=== PATIENT | female | born 1980 | race Caucasian/White ===

== ENCOUNTER 2017-05-16 09:33 | Inpatient (IN) ==
--- NOTE | 2017-05-15 22:30 | Discharge Summary ---
<Daysi Murguia Alessandro - Last Filed: 05/15/17 22:27> Date of Encounter: 05/15/17 - Discharge Diagnosis (1) Arthritis of knee, left Priority: Primary Status: Acute (2) Status post total knee replacement, left Priority: Primary Status: Acute - Discharge Medications Home Medications: Aspirin Enteric Coated [Aspirin EC] 325 mg PO DAILY #21 tablet. 05/15/17 [Rx] OxyCODONE Immed Rel [Roxicodone 5 MG] 5 - 10 mg PO Q6HR PRN #40 tablet 05/15/17 [Rx] Citalopram Hydrobromide [Celexa] 40 mg PO DAILY 05/16/17 [History] Tramadol HCl [Ultram] 50 mg PO Q6H PRN 05/16/17 [History] Allergies/Adverse Reactions: Allergies No Known Allergies Allergy (Verified 05/16/17 10:09) Primary care physician: Dara Monaco MD - Patient Status Disposition: Home, Self-Care Condition: Good - Discharge Instructions Follow Up With: Dara Monaco MD [Primary Care Provider] - - Hospital Course Hospital course: Ms. Adair is a 36 year old female - Time Spent with Patient Total time spent providing and/or coordinating discharge services: <Jomar Cabral - Last Filed: 05/17/17 06:27> Date of Encounter: 05/17/17 Time of Encounter: 06:26 - Discharge Diagnosis (1) Arthritis of knee, left Priority: Primary Status: Chronic (2) Status post total knee replacement, left Priority: Primary Status: Acute Primary care physician: Dara Monaco MD - Patient Status Functional capacity at discharge: uses cane/walker Overall status at discharge: patient is progressing back to baseline - Hospital Course Hospital course: Ms. Adair is a 36 year old female Status post left total knee replacement. The patient had an uneventful postoperative course. They received antibiotics and physical therapy and were discharged in stable condition. There will follow-up in the office in 2 weeks. - Time Spent with Patient Total time spent providing and/or coordinating discharge services:
--- NOTE | 2017-05-15 22:34 | Physician Discharge Referral ---
Home Health/Hosp Referral Info Transfer to: Home Health Provider in Charge Post Discharge: PCP - Diagnosis (1) Arthritis of knee, left Priority: Primary Status: Acute (2) Status post total knee replacement, left Priority: Primary Status: Acute - Respiratory Orders None Smoking Cessation: Smoking cessation has been advised. For more information, call the [place] Tobacco Quit Line at 1-618-DDXK-NOW. - Diet/Nutrition Diet/Nutrition Orders: Regular - Activity Activity Orders: Up ad dalton, Ambulate - Services Needed Following services are medically necessary services: Nursing, Home Health Aide, Physical Therapy, Occupational Therapy Home Care Orders: Opsite dressing, leave intact until first post-operative visit. If dressing becomes >50% saturated, contact office, remove dressing and place appropriate dressing in its place. Do not allow for dressing to get wet. Mercer in place, plan to remove at post-operative day #14-16. Total Joint Precautions x 6 weeks Apply cold therapy wrap 3-6x/day for 20 minutes at a time. Encourage ambulation throughout the day Use Incentive spirometer 10x/hour. Elevate affected extremity above heart as tolerated. Brace: Wear knee immobilizer at night x 2 weeks - Transfer Medications Prescriptions: OxyCODONE Immed Rel [Roxicodone 5 MG] 5 - 10 mg PO Q6HR PRN #40 tablet PRN Reason: Pain Aspirin Enteric Coated [Aspirin EC] 325 mg PO DAILY #21 tablet. Home Medications: Aspirin Enteric Coated [Aspirin EC] 325 mg PO DAILY #21 tablet. 05/15/17 [Rx] OxyCODONE Immed Rel [Roxicodone 5 MG] 5 - 10 mg PO Q6HR PRN #40 tablet 05/15/17 [Rx] Certification: Further, I certify that my clinical findings support that this patient is homebound (i.e. absences from home require considerable and taxing effort and are for medical reasons or hindu services or infrequently or short duration when for other reasons) because: Homebound Reason: Post-surgery restriction and or conditions limit ability to leave home Attestation: My signature below is to certify that this patient is under my care and that I, or nurse practitioner, or a physician's branch assistant working with me, has a face-to -face encounter with this patient.
[2017-05-16] MEDS ORDERED: Albuterol 2.5 MG/3 ML NEBULIZER IH ONE ×2 (10:12→12:23)
[2017-05-16] MEDS ORDERED: CeFAZolin Pre 2,000 MG/100 ML 2,000 MG/100 ML BAG IVPB ONE (10:12)
[2017-05-16] MEDS ORDERED: Ringers Solution, Lactated 1,000 ML IVC SCH ×3 (10:15→14:28)
--- NOTE | 2017-05-16 10:20 | History & Physical Report ---
Date of Encounter: 05/16/17 Time of Encounter: 10:19 24 Hour HP Update - Instructions Instructions: If the History and Physical is less than 30 days old and was completed prior to A.M. admission and or procedure and has NOT been updated on calendar day of procedure please complete this update prior to performing procedure. - Update Patient reports changes in Medical Condition: No Changes in examination, assessment, or condition: No Changes in Medication: No Preop tests/diagnostics Reviewed: Yes Surgery Remains Indicated: Yes Consent for Planned Operative Procedure(s) Verified: Yes - Pre-Operative Checklist Preoperative Checklist Indicated: No Prophylactic Antibiotic Ordered: Yes Is VTE Prophylaxis Indicated?: Yes
[2017-05-16] MEDS ORDERED: Famotidine 20 MG/2 ML VIAL IVP ONE (10:21)
[2017-05-16] MEDS ORDERED: Gabapentin 300 MG CAPSULE PO ONE (10:21)
--- NOTE | 2017-05-16 10:45 | Anesthesia Evaluation PreOp ---
Date of Encounter: 05/16/17 Time of Encounter: 10:45 - Past History Planned Operation: Left TKA Cardiac History: Denies any Significant Hx Pulmonary History: Smoker ROAD SIGN INSTALLER History: Denies Any Significant HX Other Medical History: Other (OA) Anesthesia History: No Prior Anesthetic Complications : No Test: Negative Alcohol Use: none Drug use: none Medications and Allergies Aspirin Enteric Coated [Aspirin EC] 325 mg PO DAILY #21 tablet. 05/15/17 [Rx] OxyCODONE Immed Rel [Roxicodone 5 MG] 5 - 10 mg PO Q6HR PRN #40 tablet 05/15/17 [Rx] Citalopram Hydrobromide [Celexa] 40 mg PO DAILY 05/16/17 [History] Tramadol HCl [Ultram] 50 mg PO Q6H PRN 05/16/17 [History] Allergies No Known Allergies Allergy (Verified 05/16/17 10:09) - Meds/Allergy Pre-op Review Medications Reviewed: Yes Allergies Reviewed: Yes Beta Blockers on Current Med List: No Anesthesia Results - Labs Laboratory Tests 05/09/17 05/09/17 14:35 14:35 Hgb 13.7 Hct 40.9 Plt Count 437 H Sodium 139 Potassium 3.7 BUN 11 Creatinine 0.70 - Imaging EKG: report reviewed (SR short TX) Anesthesia Exam O2 Sat Height 1.64 m Height 1.64 m Height 1.64 m Weight 70.76 kg Weight 70.76 kg Weight 70.76 kg O2 Sat by Pulse Oximetry 100 Vital Signs Temp Pulse Resp BP Pulse Ox 98.1 F 95 18 102/70 100 05/16/17 09:57 05/16/17 09:57 05/16/17 09:57 05/16/17 09:57 05/16/17 09:57 Height: 5'5 Weight: 156 lbs NPO (# of Hours): MN Pain Scale: 0 - HEENT Pupil (Motor): Pupils equal, EOMI Mallampati: II Teeth: Normal Oral Opening: Greater than 3 - ROAD SIGN INSTALLER LOC: Oriented ROAD SIGN INSTALLER Motor: Normal RUE, Normal LUE, Normal RLE, Normal LLE, Normal Face ROAD SIGN INSTALLER Sensory: Normal: RUE, LUE, RLE, LLE, Face - Cardiac Rhythm: Regular Murmur: None JVD: No Carotid Bruit: No - Pulmonary Breath Sounds: bilateral Clear Respiratory Effort: Symmetrical Anesthesia Assess/Plan ASA Score: 2 Modified Austin Scale for Level of Consciousness: Cooperative, oriented, and tranquil Anesthetic Plan: General, Regional Monitoring Plan: Standard Monitors Recovery Plan: PACU (Discussed GA and RA, agrees to proceed)
[2017-05-16] MEDS ORDERED: *HR* Propofol 200 MG/20 ML VIAL IVP ONE (10:50)
[2017-05-16] MEDS ORDERED: *HR* Midazolam HCl 2 MG/2 ML VIAL ONE ×2 (10:50→11:18)
[2017-05-16] MEDS ORDERED: *HR* FentaNYL (PF) 100 MCG/2 ML VIAL ONE ×2 (10:50→12:07)
[2017-05-16] MEDS ORDERED: Lidocaine -MPF 4% 5 ML AMPUL ONE (10:51)
[2017-05-16] MEDS ORDERED: *HR* Succinylcholine 200 MG/10 ML VIAL IVP ONE (10:54)
[2017-05-16] MEDS ORDERED: Lidocaine -MPF 2% 2 ML VIAL ONE (10:54)
[2017-05-16] MEDS ORDERED: ROPIVACAINE HCL/PF 0.5% 30 ML VIAL ONE (11:19)
[2017-05-16] MEDS ORDERED: Bupivacaine/Clonidine Syringe 1 EACH SYRINGE ONE (11:19)
[2017-05-16] MEDS ORDERED: Ondansetron 4 MG/2 ML VIAL ONE (12:17)
[2017-05-16] MEDS ORDERED: Dexamethasone 4 MG/ML VIAL ONE (12:17)
[2017-05-16] MEDS ORDERED: Ketorolac 30 MG/ML VIAL ONE (12:22)
[2017-05-16] MEDS ORDERED: Ondansetron 4 MG/2 ML VIAL IVP ONE (12:23)
[2017-05-16] MEDS ORDERED: Naloxone 0.4 MG/ML INJ IVP PRN ×2 (12:23→14:28)
[2017-05-16] MEDS ORDERED: *HR* Meperidine 25 MG/ML SYRINGE IVP PRN (12:23)
[2017-05-16] MEDS ORDERED: *HR* Labetalol 20 MG/4 ML SYRINGE IVP PRN (12:23)
[2017-05-16] MEDS ORDERED: *HR* HYDROmorphone 2 MG/ML SYRINGE ONE (12:28)
--- NOTE | 2017-05-16 12:47 | Orthopedic Operative Note ---
Date of procedure: 05/16/17 Pre-op diagnosis: Left knee arthritis Post-op diagnosis: same (Significant Synovitis) Procedure: Procedure: Left Total knee replacement Estimated blood loss: 400 cc Hardware: Metal and polyethylene replacement. Arthrex Femur: 4 Tibia: 3 PS insert: 14 Patella: 30 Exam Under anesthesia: Full flexion and extension no instability Procedural Notes: Patient is grade 3 arthritic changes all 3 compartments. Significant synovitis synovium sent as specimen. Operative procedure: The patient was brought to the operating room and placed on the operating room table. After general anesthesia was administered the operative knee was examined. Findings were noted in the exam under anesthesia. The operative extremity was prepped and draped in sterile surgical fashion. The patient received IV antibiotics prior to skin incision. A standard midline incision was made centered over the patella. The incision was made through the skin and subcutaneous tissue. A medial parapatellar tendon approach was performed. Care was taken to preserve tissue along the medial aspect of the patella. And to protect the patella tendon. The deep MCL was released off the medial tibia. The infra patella fat pad was excised. Knee was brought into flexion. Patient noted to have grade 3 arthritic changes all 3 compartments. Also noted to have significant synovitis. Extensive synovectomy was performed and synovium was sent for specimen. The entry hole was made for the intramedullary femoral guide. The guide was seated in 6 degrees of valgus. Anterior cut was made followed by the distal cut. The ACL the PCL the medial and the lateral menisci were excised. The tibia was subluxed forward. The entry hole was made for the intramedullary tibial guide. Guide was seated to resect 2 mm off the more abnormal side. The knee was brought into flexion the distal femur was sized to a 4. The femoral guide was seated, the anterior cut was made followed by the posterior condylar cut, followed by the chamfer cuts. The finishing guide was seated the box cut was made and the lug holes were drilled. The tibia was sized to a 3, the tibial tray was seated and prepared with the large drill followed by the fin cutter. Trial reduction revealed full extension no varus valgus instability with the appropriate 14 PS Lacy. The patella was everted and cut was made at the level of the insertion of the quadriceps and patella tendon. The patella was sized to a 30 the guide was seated and the lug holes are drilled. Trial reduction revealed excellent patella tracking. All trial components were removed all bony surfaces were irrigated. The tibia was cemented first followed by the femur. The 14 PS Lacy was seated and the knee was brought into full extension. The patella was cemented and held in place with the patellar holding clamp. After the cement had hardened, the knee sat for 2 minutes with a Betadine saline solution. The knee was then irrigated out with 2 L of pulse irrigation. The knee was closed by the PA. The extensor mechanism was closed with #2 FiberWire suture and #2 PDS suture. The subcutaneous tissue was then irrigated and closed deep with #1 PDS suture superficially with 0 PDS suture and skin was closed with skin farhana. The patient was then placed in a sterile dressing and a postoperative brace extubated and transferred to recovery room in stable condition. Anesthesia: MARIA E Surgeon: Jomar Cabral Steam And Gas Turbine Assembler: Daysi Murguia Condition: stable Disposition: PACU
--- NOTE | 2017-05-16 13:16 | Anesthesia Procedures ---
Date of Encounter: 05/16/17 Time of Encounter: 11:00 Procedures: Anesthesia - Nerve Block Procedure Date: 05/16/17 Time: 11:30 Pre-op Diagnosis: Left Knee OA Surgical Procedure: Left TKA Checklist: Correct Patient Identifier Correct side: Left Blood Thinner: No Monitor Applied: EKG, BP, Pulse Oximetry Supplemental Oxygen via Nasal Cannula (L/min): 2 Sedation: Versed (mg): 4 Sedation: Fentanyl (mcg): 100 Indication: Post Op Analgesia Pre-op Neuro Deficits: No Block Type: Femoral, Other (IPACK) Catheter placed: No Depth at skin (cm): 2 Sterile Technique: Yes Ultrasound used: Yes Anatomy identified: Yes Visual spread of Local: Yes Neuro Stimulation: Yes Nerve Stimulator Range: >0.4 - 0.6 mA Blood on Needle Aspiration: No Smooth Injection of Local: Yes Pain with Injection of Local: No Prep: Chlorhexadine Needle: 22 x 50 mm Stimuplex Local: 0.25% Bupivicaine w/Clonidine 20 mcg/cc, Ropivacaine (0.5%) Volume (cc): 30 Number of Attempts: 1 Complications: None/effective block Vitals: Vital Signs/O2 Sat/Glucose, Most Current Temp Pulse Resp BP Pulse Ox 05/16/17 11:46 91 14 106/75 99 05/16/17 11:19 94 16 103/70 99 05/16/17 09:57 98.1 F 95 18 102/70 100
[2017-05-16 13:27] LABS: Hematocrit 35.5 % (35.3-44.9)
[2017-05-16 13:30] LABS: Hemoglobin 11.2 g/dL (11.5-15.4)
[2017-05-16] MEDS: *HR* HYDROmorphone (PF) 1 MG/ML SYRINGE IVP PRN ×4 (13:39→21:21)
--- NOTE | 2017-05-16 14:02 | Anesthesia Evaluation Post Op ---
Date of Encounter: 05/16/17 Time of Encounter: 14:01 - Vital Signs Vital Signs: Vital Signs/O2 Sat/Glucose, Most Recent Temp Pulse Resp BP Pulse Ox 98.3 F 93 16 120/92 100 05/16/17 13:43 05/16/17 13:53 05/16/17 13:53 05/16/17 13:53 05/16/17 13:53 - Lungs Lungs: Clear Ascult./Percussion - Airway Airway: Non-obstructed - Cardiovascular Regular Rate, Baseline Rhythm - Mental Status Mental Status: Alert & Oriented, Answers Appropriately - Pain Pain Scale: 4 Pain Scale used: Numeric (1 - 10) - Nausea Vomiting Nausea Vomiting: Not Present - Hydration Hydration: Tolerates oral liquids, Ice chips, Has not voided Notes: 05/16/17 14:01 naac - Discharge PostOp Status: Transfer Patient to floor
[2017-05-16] MEDS ORDERED: Ondansetron 4 MG/2 ML VIAL IVP PRN (14:28)
[2017-05-16] MEDS ORDERED: *HR* OxyCODONE Immed Rel 5 MG TABLET PO PRN (14:28)
[2017-05-16] MEDS: ceFAZolin 2,000 MG in D5% in Water 100 ML IVPB SCH (16:35)
[2017-05-16] MEDS: *HR* Enoxaparin 30 MG/0.3 ML SYRINGE SQ SCH (16:36)
[2017-05-16] MEDS ORDERED: *HR* Enoxaparin 30 MG/0.3 ML SYRINGE SQ SCH (18:00)
[2017-05-16] MEDS: *HR* OxyCODONE Immed Rel 5 MG TABLET PO PRN (20:38)
[2017-05-16] MEDS ORDERED: Sennosides 8.6 MG TABLET PO PRN (21:00)
[2017-05-16] MEDS ORDERED: Temazepam 15 MG CAPSULE PO PRN (21:00)
[2017-05-16] MEDS ORDERED: MOM Conc 10 ML UD.LIQ PO PRN (21:00)
[2017-05-16] MEDS ORDERED: Ketorolac 30 MG/ML VIAL IM PRN (21:19)
[2017-05-16] MEDS ORDERED: Acetaminophen IV 1,000 MG/100 ML INFUS..BTL IVPB SCH (21:30)
[2017-05-16] MEDS: Gabapentin 300 MG CAPSULE PO SCH (22:28)
[2017-05-16] MEDS: Ketorolac 30 MG/ML VIAL IVP PRN (22:36)
[2017-05-17] MEDS: Acetaminophen IV 1,000 MG/100 ML INFUS..BTL IVPB SCH ×5 (00:03→21:30)
[2017-05-17] MEDS: ceFAZolin 2,000 MG in D5% in Water 100 ML IVPB SCH (00:03)
[2017-05-17] MEDS: *HR* OxyCODONE Immed Rel 5 MG TABLET PO PRN ×5 (03:40→23:26)
[2017-05-17] MEDS: *HR* Enoxaparin 30 MG/0.3 ML SYRINGE SQ SCH ×2 (04:55→17:46)
[2017-05-17 06:02] LABS: Hematocrit 33.4 % (35.3-44.9); Hemoglobin 10.6 g/dL (11.5-15.4)
[2017-05-17 06:19] LABS: BUN/Creatinine Ratio 14 (6-26); Blood Urea Nitrogen 11 mg/dL (7-20); Calcium 8.4 mg/dL (8.6-10.8); Carbon Dioxide 24 mEq/L (19-29); Chloride 107 mEq/L (98-109); Glucose 113 mg/dL (70-99); Osmolality,Calculated 292 (280-300); Potassium 3.4 mEq/L (3.5-4.5); Sodium 141 mEq/L (136-145); eGFR For African Americans > 60 (> 60); eGFR For Non-African Americans > 60 (> 60)
--- NOTE | 2017-05-17 06:28 | Orthopedics Progress Note ---
Date of Encounter: 05/17/17 Time of Encounter: 06:27 - Assessment and Plan (1) Arthritis of knee, left Current Visit: Yes Status: Chronic (2) Status post total knee replacement, left Current Visit: Yes Status: Acute Subjective Interval history: Patient was seen this morning doing well without complaints. Afebrile vital signs stable. Operative extremity: Neurovascularly intact Dressing clean dry and intact Calves nontender Assessment and plan: Continue with postoperative care Discharged today Objective Vital signs: Vital Signs Temp Pulse Resp BP Pulse Ox 05/17/17 04:51 97.4 F L 86 17 112/78 98 05/17/17 00:04 98.2 F 77 17 104/72 98 05/16/17 19:48 98.0 F 88 18 107/72 99 05/16/17 17:35 98.0 F 90 16 125/82 98 05/16/17 16:30 97.9 F 93 17 122/77 99 05/16/17 15:29 97.8 F 95 16 121/76 05/16/17 14:50 97.8 F 94 16 119/79 98 05/16/17 14:25 97.8 F 97 16 119/86 98 05/16/17 14:03 98.4 F 96 14 127/90 99 05/16/17 13:53 93 16 120/92 100 05/16/17 13:43 98.3 F 100 14 112/77 100 05/16/17 13:33 100 16 108/76 100 05/16/17 13:23 88 14 99/72 98 05/16/17 13:13 97.0 F L 82 16 90/57 96 05/16/17 11:46 91 14 106/75 99 05/16/17 11:19 94 16 103/70 99 05/16/17 09:57 98.1 F 95 18 102/70 100 Intake and Output 05/16/17 05/16/17 05/17/17 15:59 23:59 07:59 Intake Total 100 / 100 400 / 400 650 / 650 Output Total 400 / 400 Balance -300 / -300 400 / 400 650 / 650 Intake: IV Fluids 100 / 100 100 / 100 100 / 100 Ofirmev 1,000 mg/100 ml 1 100 / 100 ,000 mg In 100 ml @ 400 mls/hr IVPB Q6H [facility] Rx#: [id number] Ancef Premix 2,000 MG/100 100 / 100 ML 2,000 mg In 100 ml @ 200 mls/hr IVPB PREOP ONE Rx#:[id number] Ancef 2,000 MG In 100 / 100 Dextrose 5% 100 ML @ 200 mls/hr IVPB Q8HR [facility] Rx#: [id number] Oral 300 / 300 550 / 550 Output: Estimated Blood Loss 400 / 400 Other: # Voids 1 Weight 70.76 kg - Labs CBC & BMP: 05/17/17 04:37 05/17/17 04:37 Labs: Abnormal lab results Hgb 10.6 g/dL (11.5-15.4) L 05/17/17 04:37 Hct 33.4 % (35.3-44.9) L 05/17/17 04:37 Potassium 3.4 mEq/L (3.5-4.5) L 05/17/17 04:37 Glucose 113 mg/dL (70-99) H 05/17/17 04:37 Calcium 8.4 mg/dL (8.6-10.8) L 05/17/17 04:37 - VTE Documentation of Mechanical Device: Venous foot pump, device Consult Discharge Plan - Plan Referrals: Dara Monaco MD [Primary Care Provider] -
[2017-05-17] MEDS: Ketorolac 30 MG/ML VIAL IVP PRN ×2 (08:37→15:55)
[2017-05-17] MEDS: *HR* HYDROmorphone (PF) 1 MG/ML SYRINGE IVP PRN ×2 (09:36→14:44)
--- NOTE | 2017-05-17 11:54 | Event Note ---
Date of Encounter: 05/17/17 Time of Encounter: 11:53 PCR - POD#1 - Left TKR Patient seen at bedside. Confirmed RA diagnosis by cloud administrator - no RA medications at this time. Pain control: Adequate, continue NSAIDs and Tylenol. D/C IV pain medication. Participating in PT. All questions and concerns addressed. Educated on use of incentive spirometer, ambulation, and hydration. Patient educated on post-operative restrictions and care. Addressed: See Above D/C plan: D/C home today 05/17/17 - - may be 05/18/17 pending pain control.
[2017-05-17] MEDS: Gabapentin 300 MG CAPSULE PO SCH (20:01)
[2017-05-17] MEDS ORDERED: *HR* HYDROmorphone (PF) 1 MG/ML SYRINGE IVP PRN (21:45)
[2017-05-18] MEDS: Ketorolac 30 MG/ML VIAL IVP PRN (01:43)
[2017-05-18] MEDS: Acetaminophen IV 1,000 MG/100 ML INFUS..BTL IVPB SCH ×2 (04:17→09:37)
[2017-05-18 05:08] LABS: Hematocrit 28.8 % (35.3-44.9); Hemoglobin 9.1 g/dL (11.5-15.4)
[2017-05-18 05:26] LABS: BUN/Creatinine Ratio 20 (6-26); Blood Urea Nitrogen 13 mg/dL (7-20); Calcium 7.9 mg/dL (8.6-10.8); Carbon Dioxide 27 mEq/L (19-29); Chloride 105 mEq/L (98-109); Glucose 90 mg/dL (70-99); Osmolality,Calculated 286 (280-300); Potassium 3.3 mEq/L (3.5-4.5); Sodium 138 mEq/L (136-145); eGFR For African Americans > 60 (> 60); eGFR For Non-African Americans > 60 (> 60)
[2017-05-18] MEDS: *HR* Enoxaparin 30 MG/0.3 ML SYRINGE SQ SCH (05:45)
[2017-05-18] MEDS: *HR* OxyCODONE Immed Rel 5 MG TABLET PO PRN (05:45)
--- NOTE | 2017-05-18 07:52 | Orthopedics Progress Note ---
Date of Encounter: 05/18/17 Time of Encounter: 07:51 - Assessment and Plan (1) Arthritis of knee, left Current Visit: Yes Status: Chronic (2) Status post total knee replacement, left Current Visit: Yes Status: Acute Subjective Interval history: Patient was seen this morning doing very anxious complaining of severe pain. Afebrile vital signs stable. Operative extremity: Neurovascularly intact Dressing clean dry and intact Calves nontender Some swelling will obtain Doppler examination. Assessment and plan: Continue with postoperative care hematocrit 28 asymptomatic patient may require rehabilitation inpatient. Discharged today Objective Vital signs: Vital Signs Temp Pulse Resp BP Pulse Ox 05/18/17 03:19 97.9 F 79 15 117/81 98 05/17/17 23:32 97.7 F 75 16 117/75 98 05/17/17 20:20 97.4 F L 96 18 129/93 98 05/17/17 15:09 97.4 F L 70 18 121/82 97 05/17/17 14:47 88 120/88 05/17/17 11:12 97.5 F L 75 18 102/65 97 Intake and Output 05/17/17 05/17/17 05/18/17 15:59 23:59 07:59 Intake Total 1540 / 1540 Output Total 0 / 0 0 / 0 Balance 1540 / 1540 0 / 0 Intake: IV Fluids 1200 / 1200 Lactated Ringers 1,000 ML 1000 / 1000 @ 75 mls/hr IVC .[id number] [facility] Rx#:[id number] Ofirmev 1,000 mg/100 ml 1 100 / 100 ,000 mg In 100 ml @ 400 mls/hr IVPB Q6H [facility] Rx#: [id number] Oral 340 / 340 Output: Urine 0 / 0 0 / 0 Other: Meal Breakfast Dinner Percent of Meal Consumed 0% 50% # Voids 1 - Labs CBC & BMP: 05/18/17 04:39 05/18/17 04:39 Labs: Abnormal lab results Hgb 9.1 g/dL (11.5-15.4) L D 05/18/17 04:39 Hct 28.8 % (35.3-44.9) L 05/18/17 04:39 Potassium 3.3 mEq/L (3.5-4.5) L 05/18/17 04:39 Calcium 7.9 mg/dL (8.6-10.8) L 05/18/17 04:39 - VTE Documentation of Mechanical Device: Venous foot pump, device Consult Discharge Plan - Plan Referrals: Dara Monaco MD [Primary Care Provider] -
[2017-05-18] MEDS ORDERED: *HR* OxyCODONE/APAP 5/325 TABLET PO PRN (08:13)
[2017-05-18] MEDS: *HR* OxyCODONE/APAP 5/325 TABLET PO PRN ×3 (09:41→13:47)
[2017-05-18] MEDS ORDERED: Ibuprofen 600 MG TABLET PO PRN (11:58)
[2017-05-18] MEDS ORDERED: Ketorolac 30 MG/ML VIAL IVP SCH (12:00)
--- NOTE | 2017-05-18 12:01 | Event Note ---
Date of Encounter: 05/18/17 PCR - POD#2 - Left TKR Patient seen at bedside. Confirmed RA diagnosis by manager advanced Dr. Robbins- no RA medications at this time. Pain control: Adequate, continue NSAIDs and Tylenol. D/C IV pain medication today. Participating in PT. All questions and concerns addressed. Educated on use of incentive spirometer, ambulation, and hydration. Patient educated on post-operative restrictions and care. Addressed: Stop IV pain meds - START PO only - Ibuprofen added. D/C plan: D/C home today 05/17/17 - - may be 05/18/17 pending pain control.
[2017-05-18 12:21] VITALS: BP 124/82
--- NOTE | 2017-05-19 08:42 | Venous Imaging Report ---
LE Venous Duplex Patient Name:Nona Adair Order Number:[id number] Procedure Date:05/18/2017 Date:1980Age:36 yrs Gender:Female Location:[facility] Room #: 3NE29 Sand Temperer:FELIPE De LeónT, RDCS Referring MD:Jomar Cabral MD field operations technician:Dara Monaco MD Reading MD:Talib Alcaraz MD , FACS Primary Indications:LEFT CALF PAIN Secondary Indications: Risk Factors Yes/No Recent Surgery Yes Anticoagulants Yes Impressions: Left lower extremity: normal superficial and deep exam. Right lower extremity: normal contralateral exam. Findings Venous Duplex Results: Right: Venous imaging of the lower extremity reveals full patency and normal vessel compressibility of the right common femoral. Doppler signals in the evaluated veins were normal. Left: Venous imaging of the lower extremity reveals full patency and normal vessel compressibility of the left distal iliac, left common femoral, left superficial femoral, left popliteal, left posterior tibial, left peroneal, left great saphenous and left lesser saphenous. Doppler signals in the evaluated veins were normal. Prior Study: No prior study available for comparison. Lower Extremity Venous Duplex Side Vein Compress Spontaneous Flow Augment Diameter (cm) Depth (cm) Left Distal Iliac Normal Yes Phasic Yes Left Common Femoral Normal Yes Phasic Yes Left Superficial Femoral Normal Yes Phasic Yes Left Popliteal Normal Yes Phasic Yes Left Posterior Tibial Normal Yes Phasic Yes Left Peroneal Normal Yes Phasic Yes Left Great Saphenous Normal Yes Phasic Yes Left Lesser Saphenous Normal Yes Phasic Yes Right Common Femoral Normal Yes Phasic Yes Updated by Talib Alcaraz MD, FACS on 05/19/2017 8:36:37 AM Talib Alcaraz MD electronically signed on 05/19/2017 8:37:09 AM with status of Final
== END 2017-05-18 14:33 | disposition home or self-care (01) | DRG 302 ==
LOC: SAMDAY 09:33 → 3NENU 14:23
PROVIDERS: ADMIT Orthopaedic Surgery; ATTEND Orthopaedic Surgery